=== PATIENT | male | born 1975 | race Caucasian/White ===

== ENCOUNTER 2019-07-02 08:08 | Day surgery (SDC) | payer OTHER ==
[~2019-07-02] VITALS: Ht 193 cm; Wt 109.8 kg
[2019-07-02] MEDS ORDERED: MUPIROCIN 2% TOPICAL OINTMENT 22 GM TP ONE (09:15)
[2019-07-02] MEDS ORDERED: DEXAMETHASONE SOD PHOSPHATE 4 MG/ML VIAL IVP ONE (09:15)
[2019-07-02] MEDS ORDERED: fentaNYL CITRATE/PF 100 MCG/2 ML AMP IVP ONE (09:15)
[2019-07-02] MEDS ORDERED: SEVOFLURANE 15 MIN GAS INH ONE (09:15)
[2019-07-02] MEDS ORDERED: OXYMETAZOLINE HCL 0.05% NASAL SPRAY NS ONE (09:15)
[2019-07-02] MEDS ORDERED: MIDAZOLAM HCL 5 MG/5 ML VIAL IVP ONE (09:15)
[2019-07-02] MEDS ORDERED: LR 1,000 ML IV.SOLN IV ONE (09:15)
[2019-07-02] MEDS ORDERED: NS IRRIG SOLN 1000 ML IR ONE (09:15)
[2019-07-02] MEDS ORDERED: NS 1000 ML IV.SOLN IV ONE (09:15)
[2019-07-02] MEDS ORDERED: ROCURONIUM BROMIDE 10 MG/ML (ZEMURON) IV ONE (09:15)
[2019-07-02] MEDS ORDERED: PROPOFOL 200MG/ 20ML VIAL (DIPRIVAN) IV ONE (09:15)
[2019-07-02] MEDS ORDERED: LIDOCAINE/EPI 1% 1:100000 20 ML VIAL INJ ONE (09:15)
[2019-07-02] MEDS ORDERED: LR 1,000 ML IV SCH (10:33)
[2019-07-02] MEDS ORDERED: HYDROmorphone 2 MG/ML VIAL IVP PRN ×2 (10:45)
[2019-07-02] MEDS ORDERED: HYDROmorphone 1 MG INJ. 1 MG/ML AMPUL IVP PRN (10:45)
[2019-07-02] MEDS ORDERED: MEPERIDINE HCL/PF 25 MG/ML DISP.SYRIN IVP PRN (10:45)
[2019-07-02] MEDS ORDERED: DILTIAZEM HCL 25 MG/5 ML VIAL IVP PRN (11:45)
[2019-07-02] MEDS ORDERED: DILTIAZEM HCL 25 MG/5 ML VIAL ONE (11:56)
[2019-07-02 17:02] VITALS: BP_SYST 148
== END 2019-07-02 13:50 | disposition home or self-care (01) ==
LOC: SDS 08:08 → STU 08:09 → SDS 13:50
PROVIDERS: ATTEND Otolaryngology
DX: J34.2 Deviated nasal septum (principal); J33.8 Other polyp of sinus; I10 Essential (primary) hypertension; J30.1 Allergic rhinitis due to pollen; H60.63 Unspecified chronic otitis externa, bilateral; H90.3 Sensorineural hearing loss, bilateral; Z88.0 Allergy status to penicillin; Z88.1 Allergy status to other antibiotic agents; Z88.5 Allergy status to narcotic agent; Z90.89 Acquired absence of other organs
CPT/HCPCS: 30140; 30520; 88304; 88311; J1100; J2250; J2704; J3010; J3490; J7030; J7120; 88305

== ENCOUNTER 2019-12-14 15:10 | Emergency (ER) | payer OTHER ==
[~2019-12-14] VITALS: Ht 185.4 cm; Wt 90.7 kg
--- NOTE | 2019-12-14 15:14 | NUR ---
Patient to ER bed 07 to gown for evaluation. Side rails up.
[2019-12-14 15:15] VITALS: BP_SYST 131; BP_SYST 155
--- NOTE | 2019-12-14 15:15 | NUR ---
Pt came to ER with back pain after hurting it while lifting weights at 1400 yesterday afternoon. Pt laying flat in [facility], pt VSS, no distress noted at this time.
--- NOTE | 2019-12-14 15:18 | NUR ---
HARSHIL Hilario at bedside examining patient.
[2019-12-14] MEDS ORDERED: DEXAMETHASONE SOD PHOSPHATE 10 MG/ML VIAL IM ONE (15:30)
--- NOTE | 2019-12-14 15:32 | NUR ---
Patient transported to radiology via gurney, accompanied by geoffrey.
[2019-12-14 16:16] VITALS: BP_SYST 152
--- NOTE | 2019-12-14 16:16 | NUR ---
Patient given written and verbal discharge instructions and verbalizes understanding. ER MD discussed with patient the results and treatment provided. Patient in stable condition. ID arm band removed. Rx of medrol pack given. Patient educated on pain management and to follow up with PMD. Pain Scale 5/10 tolerable. Opportunity for questions provided and answered. Medication side effect fact sheet provided.
[2019-12-14] MEDS ORDERED: MORPHINE 4 MG/ML INJ. SYRINGE IM ONE (16:45)
== END 2019-12-14 16:16 | disposition home or self-care (01) ==
LOC: SED 15:10
DX: S39.012A Strain of muscle, fascia and tendon of lower back, initial encounter (principal); M51.26 Other intervertebral disc displacement, lumbar region; I10 Essential (primary) hypertension; Z88.5 Allergy status to narcotic agent; Z88.8 Allergy status to other drugs, medicaments and biological substances; X50.1XXA Overexertion from prolonged static or awkward postures, initial encounter; Y93.89 Activity, other specified; Y92.89 Other specified places as the place of occurrence of the external cause; Y99.8 Other external cause status
CPT/HCPCS: 72131; 96372; 99284; J1100; J2270